=== PATIENT | female | born 1990 | race Caucasian/White ===

== ENCOUNTER 2024-11-25 13:56 | Outpatient (CLI) | payer OTHER, SELFPAY ==
--- NOTE | 2024-11-25 | ECG_ITS ---
Test Date: 2024-11-25 14:23:59 Measurements Intervals Waller Rate: 75 P: 56 MT: 131 QRS: 55 QRSD: 92 T: 34 QT: 387 QTc: 434 Interpretive Statements SINUS ARRHYTHMIA Electronically Signed On 11-27-2024 13:50:51 CDT by Dev Schmidt D.O
--- OUTSIDE RECORDS SUMMARY | 2024-11-25 14:01 | XMS_ITS | Encounter Summary ---
Author Organization [facility] Healthcare Address [address] [place] [address] Care Team Providers Care Annealing Furnace Tender Name Role Phone Chris Osman NP Primary Care Provider [phone] Encounter Details Date Type Department Care Team (Late st Contact Info) Description 11/18/2024 Results Follow-Up Family Care at [address] [address] Chris Osman, ADULT CAREGIVER [id number] [place] [address] [address] [address] Social History Tobacco Use Types Packs/Day Years Used Date Smoking Tobacco: Never Smokeless Tobacco: Never Alcohol Use Standard Drinks/Week Comments Yes 0 (1 standard drink = 0.6 oz pur e alcohol) PHQ-2 Answer Date Recorded PHQ-2 Total Score (If total score is 3 or more points, staff should administer the PHQ-9) 0 11/16/2024 Comments No Sex and Gender Information Value Date Recorded Sex Assigned at Not on file Legal Sex Female 12:55 PM CDT Gender Identity Not on file Sexual Orientation Not on file documented as of this encounter Miscellaneous Notes * Result Encounter Note - Alexia aPlafox MA - 11/18/2024 2:23 PM MIDDLEWARE ARCHITECT Pt notified. LEWARE ARCHITECT documented in this encounter Plan of Treatment Not on file documented as of this encounter Visit Diagnoses Not on filedocumented in this encounter Care Teams Annealing Furnace Tender Relationship Specialty Start Date End Date Chris Osman, I[place] [address] [facility] [address] [place] [address] PCP - General Family Medicine 11/16/24 documented as of this encounter
--- OUTSIDE RECORDS SUMMARY | 2024-11-25 14:02 | XMS_ITS | Referral Summary ---
Author Organization [facility] [address] [place] [address] Care Team Providers Care Rn Appeals Name Role Phone Chris Osman NP Primary Care Provider [phone] Encounters Date Type Department Care Team Description 11/21/2024 10:27 AM CDT - 11/21/2024 11:59 PM CDT Hospital Encounter [address] [id number] Abscess of left lower leg; MRSA (methicillin resistant staph aureus) culture positive Discharge Disposition: Discharge to home or self care 11/21/2024 9:15 AM CDT Office Visit Family Care at [address] [address] Chris Osman NP Sebaceous cyst (Primary Dx); Abscess of left lower leg; MRSA (methicillin resistant staph aureus) culture positive 11/18/2024 Results Follow-Up Family Care at [address] [phone] Chris Osman NP 11/16/2024 11:38 AM COREMAKER PIPE - 11/16/2024 11:59 PM COREMAKER PIPE Hospital Encounter [address] [address] Abscess of left lower leg Discharge Disposition: Discharge to home or self care 11/16/2024 10:45 AM COREMAKER PIPE Office Visit Family Care at [address] [phone] Osman, Chris O., SKIVER HAND Abscess of left lower leg (Primary Dx) from Last 3 Months Allergies No known active allergies Medications sertraline (ZOLOFT) 100 mg tablet Take 1 tablet (100 mg total) by mouth daily 9 Active levonorgestrel (MIRENA) IUD 1 each by intrauterine route once Active sulfamethoxazo le-trimethopri m (BACTRIM DS) 800-160 mg per tablet Take 1 tablet by mouth 2 (two) times a day for 14 days 28 tablet 5 025 Active sulfamethoxazo le-trimethopri m (BACTRIM DS) 800-160 mg per tablet Take 1 tablet by mouth 2 (two) times a day for 10 days 20 tablet 5 025 Discontin ued(Reord er) Active Problems Problem Noted Date Diagnosed Date Sebaceous cyst 11/21/2024 Immunizations Immunization Administration Dates Next Due Influenza, Trivalent, Preser vative Free, Intramuscular 06/24/2024 Influenza, Unspecified 05/16/2024,06/14/2018,09/2011 Rho (D) Immune Globulin, IV or IM 05/12/2018, Tdap 09/14/2016 Social History Tobacco Use Types Packs/Day Years [...] on file Sexual Orientation Not on file Last Filed Vital Signs Vital Sign Reading Time Taken Comments Blood Pressure 111/74 11/21/2024 9:11 AM CDT Pulse 95 11/21/2024 9:11 AM CDT Temperature 37.1 C (98.7 F) 10/07/2019 10:22 AM COREMAKER PIPE Respiratory Rate - - Oxygen Saturation - - Inhaled Oxygen Concentration - - Weight 71.4 kg (157 lb 6.4 oz) 11/21/2024 9:11 A M CDT Height 157.5 cm (5' 2 ) 11/21/2024 9:11 AM CDT Body Mass Index 28.79 11/21/2024 9:11 AM CDT Plan of Treatment Not on file Procedures Procedure Name Priority Date/Time Associated Diagnosis Comments AEROBIC AND ANAEROBIC CULTURE AND GRAM STAIN Routine 11/21/2024 10:00 AM CDT Abscess of left lower leg MRSA (methicillin resistant staph aureus) culture positive IA INCISION & DRAINAGE ABSCESS SIMPLE/SINGLE Routine 11/21/2024 9:15 AM CDT Sebaceous cyst Abscess of left lower leg MRSA (methicillin resistant staph aureus) culture positive AEROBIC AND ANAEROBIC CULTURE AND GRAM STAIN Routine 11/16/2024 12:00 AM COREMAKER PIPE Abscess of left lower leg from Last 3 Months Results * IA INCISION & DRAINAGE ABSCESS SIMPLE/SINGLE (11/21/2024 9:15 AM CDT) Narrative Chris Osman NP - 11/21/2024 9:15 AM CDT Chris Osman NP 11/21/2024 12:11 PM Incision and Drainage Performed by: Chris Osman NP Authorized by: Chris Osman NP Consent Given by: Patient Site marked: the procedure site was marked Timeout: prior to procedure the correct patient, procedure, and site was verified Verbal consent obtained: Yes Type: Abscess Body area: Lower extremity Location details: Left leg Anesthesia: Local infiltration Scalpel size: 10 Needle gauge: 18 G Incision type: Single straight Incision depth: Dermal Complexity: Simple Drainage: Purulent, serosanguinous and bloody Drainage amount: Moderate Drainage amount (ml): 10 Wound treatment: Wound left open Patient tolerance: Patient tolerated the procedure well with no immediate complications Comments: A moderate amount of sebum expressed from the area along with purulent drainage. us Chris Osman NP IN CLINIC/BEDSIDE ORDERABLES Final Result * (ABNORMAL) Aerobic and anaerobic culture and gram stain Abscess Leg, left (11/16/2024 12:00 AM COREMAKER PIPE) Direct Specimen Exam Stain: No polymorphonuclear leukocytes seen. No organisms seen. Comment:Testing performed by : [facility], [address] [facility] [place]., [address] Report Final Report: Few Staphylococcus aureus Methicillin resistant (MRSA) by penicillin binding protein 2a (PBP2a) testing. Few Mixed anaerobic microorganisms (.) JEANETH Comment:Testing performed by : [facility], [address] [place]., [address] Organism STAPHYLOCOCCUS AUREUS [facility] Organism MIXED ANAEROBIC MICROORGANISMS [facility] Abscess (Leg, left) 11/16/2024 11/16/2024 4:09 PM COREMAKER PIPE Narrative [facility] - 11/21/2024 2:01 PM CDT Specimen received on an ESwab. Testing performed by [facility] ([phone]) Specimens submitted from normally sterile body sites will have all bacterial morphotypes identified. Specimens that contain grossly mixed crystal and/or are from body sites that are not normally sterile will be examined for Staphylococcus aureus, Pseudomonas aeruginosa, beta-hemolytic strep, vancomycin-resistant Enterococcus, Bacteroides, Parabacteroides, Clostridium perfringens and fungus. If any of these are isolated, the organism will be reported. Current interpretive data was last revised on 2019. Organism Antibiotic Method Susceptibility Staphylococcus aureus Vancomycin INTERPRETATION Susceptible Staphylococcus aureus Ceftaroline INTERPRETATION Susceptible Staphylococcus aureus Trimethoprim with Sulfamethoxazole INTERPRETATION Susceptible Staphylococcus aureus Linezolid INTERPRETATION Susceptible Staphylococcus aureus Doxycycline INTERPRETATION Susceptible Staphylococcus aureus Clindamycin INTERPRETATION Susceptible Staphylococcus aureus Erythromycin INTERPRETATION Resistant Staphylococcus aureus Oxacillin INTERPRETATION Resistant Staphylococcus aureus Cefazolin INTERPRETATION Resistant Staphylococcus aureus Ceftriaxone INTERPRETATION Resistant Chris Osman NP LAB MICROBIOLOGY - GENERAL OR DERABLES Final Result JEANETH [address] Department [place] [address] from Last 3 Months Insurance [employer] Address: [facility] [id number] [phone] [employer] Address: [facility] [id number] [phone] Care Teams Rn Appeals Relationship Specialty [place] [address] [address] [place] [address] PCP - General Family Medicine 11/16/24
--- OUTSIDE RECORDS SUMMARY | 2024-11-25 14:02 | XMS_ITS | Clinical Summary ---
Author Organization [facility] Address [address] [place] [id number] Care Team Providers Care Sash Assembler Name Role Phone Michael Lila Primary Care Provider [phone] Social History Tobacco Use Types Packs/Day Years Used Date Smoking Tobacco: Never Assessed Comments Unknown Sex and Gender Information Value Date Recorded Sex Assigned at Not on file Legal Sex Female 8:36 PM CDT Gender Identity Not on file Sexual Orientation Not on file Plan of Treatment Health Maintenance Due Date Last Done Comments Annual Physical 1993 Hepatitis C 2008 Hepatitis B Vaccines (1 of 3 - 19+ 3-dose series) 2009 Cervical Cancer Screening Pa p with HPV Testing (Age 30 to 64) Every 5 Years 2020 07/31/2017 Cervical Cancer Screening Pa p Smear (Age 30 to 64) Every 3 Years 07/31/2020 07/31/2017 Cervical Cancer Screening wi HPV 07/31/2020 COVID-19 Vaccine (2023-2 5 season) 2024 Influenza Adult (#1) 2024 06/14/2018, 06/14/2012 DTaP, Tdap and Td Vaccines ( 2 - Td or Tdap) 09/14/2026 09/14/2016 HPV Vaccines Aged Out No longer eligi ble based on patient's age to complete this topic Meningococcal B Vaccine Aged Out No l onger eligible based on patient's age to complete this topic Meningococcal Vaccine Aged Out No martha brittany eligible based on patient's age to complete this topic Pneumococcal Vaccine: Pediatrics (0 to 5 Years) and At-Risk Patients (6 to 64 Years) Aged Out No longer eligible b ased on patient's age to complete this topic RSV Immunizations Under 20 Months Aged Out No longer eligible b ased on patient's age to complete this topic Insurance [facility] Care Teams Sash Assembler Relationship Specialty Start Date End Date Lila Rodriguez DO PCP - General FAMILY PRACTICE 01/15/21
--- OUTSIDE RECORDS SUMMARY | 2024-11-25 14:02 | XMS_ITS | Clinical Summary ---
Author Organization [facility] Physician Office Building [address] [place] [phone] Care Team Providers Care Assistant Professor Of Spanish Name Role Phone Chris Osman NP Primary Care Provider [phone] Allergies No known active allergies Medications sertraline [...] Noted Date Diagnosed Date Sebaceous cyst 11/21/2024 Encounters Date Type Department Care Team Description 11/21/2024 10:27 AM CDT - 11/21/2024 11:59 PM CDT Hospital Encounter [address] [address] Abscess of left lower leg; MRSA (methicillin resistant staph aureus) culture positive Discharge Disposition: Discharge to home or self care 11/21/2024 9:15 AM CDT Office Visit Family Care at [address] [place] [address] Chris Osman NP Sebaceous cyst (Primary Dx); Abscess of left lower leg; MRSA (methicillin resistant staph aureus) culture positive 11/18/2024 Results Follow-Up Family Care at [address] [address] Chris Osman NP 11/16/2024 11:38 AM CARPENTER ASSISTANT - 11/16/2024 11:59 PM CARPENTER ASSISTANT Hospital Encounter [address] [address] Abscess of left lower leg Discharge Disposition: Discharge to home or self care 11/16/2024 10:45 AM CARPENTER ASSISTANT Office Visit Family Care at [address] [phone] Chris Osman NP Abscess of left lower leg (Primary Dx) from Last 3 Months Immunizations Immunization Administration Dates Next Due Influenza, Trivalent, Preser vative Free, Intramuscular 06/24/2024 Influenza, Unspecified 05/16/2024,06/14/2018,09/2011 Rho (D) Immune Globulin, IV or IM 05/12/2018, Tdap 09/14/2016 Medical History Medical History Date Comments Anxiety Social History Tobacco Use Types Packs/Day Years [...] on file Sexual Orientation Not on file Obstetrics History Last Filed Vital Signs Vital Sign Reading Time Taken Comments Blood Pressure 111/74 11/21/2024 9:11 AM CDT Pulse 95 11/21/2024 9:11 AM CDT Temperature 37.1 C (98.7 F) 10/07/2019 10:22 AM CARPENTER ASSISTANT Respiratory Rate - - Oxygen Saturation - - Inhaled Oxygen Concentration - - Weight 71.4 kg (157 lb 6.4 oz) 11/21/2024 9:11 A M CDT Height 157.5 cm (5' 2 ) 11/21/2024 9:11 AM CDT Body Mass Index 28.79 11/21/2024 9:11 AM CDT Plan of Treatment Health Maintenance Due Date Last Done Comments Cervical Cancer Screening 1990 Hepatitis C Screening 1990 Varicella Vaccines (1 of 2 - 13+ 2-dose series) 2003 Hepatitis B Screening 2008 Regular Well Visit/Exam 18-64 2008 Covid-19 Vaccine ( season) 2024 11/07/2020, 10/17/2020 Depression Screening 11/16/2025 11/16/2024, 10/07/19 20 DTaP/Tdap/Td Vaccine (2 - Td or Tdap) 09/14/2026 09/14/2016 Influenza Vaccine Completed 06/24/2024, , 06/14/2018, Additional history exists HPV Vaccines Aged Out No longer eligi ble based on patient's age to complete this topic Pneumococcal vaccine <65 Aged Out No longer eligible based on patient's age to complete this topic Procedures Procedure Name Priority Date/Time Associated Diagnosis Comments AEROBIC AND ANAEROBIC CULTURE AND GRAM STAIN Routine 11/21/2024 10:00 AM CDT Abscess of left lower leg MRSA (methicillin resistant staph aureus) culture positive [place] INCISION & DRAINAGE ABSCESS SIMPLE/SINGLE Routine 11/21/2024 9:15 AM CDT Sebaceous cyst Abscess of left lower leg MRSA (methicillin resistant staph aureus) culture positive AEROBIC AND ANAEROBIC CULTURE AND GRAM STAIN Routine 11/16/2024 12:00 AM CARPENTER ASSISTANT Abscess of left lower leg from Last 3 Months Results * OH INCISION & DRAINAGE ABSCESS SIMPLE/SINGLE (11/21/2024 9:15 [...] from the area along with purulent drainage. Chris Osman ORNAMENTAL METAL ERECTOR APPRENTICE IN CLINIC/BEDSIDE ORDERABLES Final Result * (ABNORMAL) Aerobic and anaerobic culture and gram stain Abscess Leg, left (11/16/2024 12:00 AM CARPENTER ASSISTANT) Direct Specimen Exam Stain: No polymorphonuclear leukocytes seen. No organisms seen. Comment:Testing performed by : [facility], [address] [place] [address]., [id number] Report Final Report: Few Staphylococcus aureus Methicillin resistant (MRSA) by penicillin binding protein 2a (PBP2a) testing. Few Mixed anaerobic microorganisms (.) JEANETH Comment:Testing performed by : [facility], [address] [place]., [address] Organism STAPHYLOCOCCUS AUREUS [facility] Organism MIXED ANAEROBIC MICROORGANISMS [facility] Abscess (Leg, left) 11/16/2024 11/16/2024 4:09 PM CARPENTER ASSISTANT Narrative [facility] - 11/21/2024 2:01 PM CDT Specimen received on an ESwab. Testing performed by [facility] ([phone]) Specimens submitted from normally sterile body sites [...] - GENERAL OR DERABLES Final Result JEANETH PADILLA [address] Department [place] [address] from Last 3 Months Insurance [employer] Address: [facility] [id number] [place] [address] [employer] Address: [address] [place] [address] Care Teams Assistant Professor Of Spanish Relationship Specialty [place] [address] [place] [address] PCP - General Family Medicine 11/16/24
== END 2024-11-25 13:57 | disposition home or self-care (01) ==
PROVIDERS: PCP Family Medicine; Visit Provider Obstetrics & Gynecology
DX: I49.8 Other specified cardiac arrhythmias (principal)
CPT/HCPCS: 93005